=== PATIENT | female | born 1990 | race Caucasian/White ===

== ENCOUNTER 2016-09-13 18:15 | Emergency (ER) | payer OTHER | END 2016-09-13 18:48 | disposition home or self-care (01) | LOC: ER 18:15 | DX: Z53.21 Procedure and treatment not carried out due to patient leaving prior to being seen by health care provider (principal) ==

== ENCOUNTER 2016-09-24 18:28 | Emergency (ER) | payer OTHER | END 2016-09-24 19:20 | disposition home or self-care (01) | LOC: ER 18:28 | DX: S93.401A Sprain of unspecified ligament of right ankle, initial encounter (principal); F32.9 Major depressive disorder, single episode, unspecified; Z88.5 Allergy status to narcotic agent; X50.1XXA Overexertion from prolonged static or awkward postures, initial encounter; Y93.02 Activity, running ==